=== PATIENT | male | born 1960 | race Caucasian/White ===

== ENCOUNTER 2019-04-29 18:51 | Emergency (ER) | payer BC ==
[2019-04-29] MEDS ORDERED: SODIUM CHLORIDE 0.9% 1,000 ML IV STA (19:19)
--- NOTE | 2019-04-29 19:19 | ED Physician Documentation ---
History of Present Illness - Stated complaint Stated Complaint: ABD PX - Chief complaint Chief Complaint: Abd Pain - Additonal information Additional information: This is a 58-year-old male presents with left lower quadrant pain. Patient st ates that the pain began in the last several hours, started just a twinge in his left lower quadrant and suddenly got much worse. It is sharp and radiates down towards his left testicle. He states that he had similar pain over 20 years ago and was found that he had an intestinal infection which cleared up with antibiotics. He denies vomiting or diarrhea, no blood in his stool, no fever. He denies any dysuria, or hematuria. No chest pain or shortness of breath Review of Systems Constitutional: denies: Fever Cardiac: denies: Chest pain / pressure Respiratory: denies: Dyspnea GI: reports: Abdominal Pain : denies: Dysuria Musculoskeletal: denies: Back pain PD PAST MEDICAL HISTORY - Past Medical History Cardiovascular: None Respiratory: None Endocrine/Autoimmune: None GI: None, Other : None HEENT: None Psych: None Musculoskeletal: None Derm: None - Past Surgical History Past Surgical History: Yes Ortho: Spine surgery, Other - Present Medications Home Medications: Ambulatory Orders Medication Instructions Recorded Confirmed traZODone [Desyrel] 50 mg ORAL QPM 09/17/15 09/25/15 Acetaminophen 650 mg PO Q6HR #30 tablet 04/29/19 Ibuprofen 600 mg PO Q6H PRN #30 tablet 04/29/19 Ondansetron Odt [Zofran] 4 mg TL Q6H PRN #10 tablet 04/29/19 Tamsulosin [Flomax] 0.4 mg PO DAILY #14 capsule 04/29/19 - Allergies Allergies/Adverse Reactions: Allergies Allergy/AdvReac Type Severity Reaction Status Date / Time No Known Drug Allergies Allergy Verified 04/29/19 18:55 - Social History Does the pt smoke?: Yes Smoking Status: Current every day smoker Does the pt drink ETOH?: No Does the pt have substance abuse?: No - Immunizations Immunizations are current?: Yes Immunizations: TDAP current <10years - POLST Patient has POLST: No PD ED PE NORMAL - Vitals Vital signs reviewed: Yes - General General: Alert and oriented X 3, No acute distress - HEENT HEENT: PERRL - Neck Neck: Supple, no meningeal sign - Cardiac Cardiac: RRR - Respiratory Respiratory: No respiratory distress, Clear bilaterally - Abdomen Abdomen: Other (Soft, rotund, there is focal left lower quadrant tenderness. No right lower quadrant right upper quadrant or left upper quadrant tendernessNo guarding. No palpable masses. There is a well-healed scar on the right inguinal region where he had a hernia repair in the past.) - Male Male : [employer] present, Other (Penis and testicles are normal in appearance, there is no overlying skin change. Patient has some mild tenderness to palpation of the left testicle, No masses palpated palpation of the left testicle) - Derm Derm: Warm and dry - Extremities Extremities: No deformity - Neuro Neuro: Alert and oriented X 3 - Psych Psych: Normal mood, Normal affect Results - Vitals Vitals: Vital Signs - 24 hr 04/29/19 04/29/19 04/29/19 18:56 21:09 21:35 Temperature 36.6 C 36.6 C Heart Rate 66 63 69 Respiratory 18 16 16 Rate Blood Pressure 142/84 H 114/64 102/86 H O2 Saturation 97 96 96 Oxygen O2 Source Room air - Labs Labs: Laboratory Tests 04/29/19 04/29/19 04/29/19 19:20 19:20 19:45 WBC 8.3 RBC 4.87 Hgb 14.7 Hct 43.1 MCV 88.5 MCH 30.2 MCHC 34.1 RDW 13.0 Plt Count 197 MPV 10.6 Neut # (Auto) 5.5 Lymph # (Auto) 1.8 [place] # (Auto) 0.7 Eos # (Auto) 0.2 Baso # (Auto) 0.1 Absolute Nucleated RBC 0.00 Nucleated RBC % 0.0 Sodium 138 Potassium 3.4 L Chloride 104 Carbon Dioxide 26 Anion Gap 8.0 BUN 16 Creatinine 1.1 Estimated GFR (MDRD) 69 L Glucose 158 H Calcium 9.1 Total Bilirubin 1.3 H AST 22 ALT 24 Alkaline Phosphatase 59 Total Protein 7.9 Albumin 4.3 Globulin 3.6 Albumin/Globulin Ratio 1.2 Lipase 39 Urine Color YELLOW Urine Clarity CLEAR Urine pH 5.5 Ur Specific [place] 1.015 Urine Protein NEGATIVE Urine Glucose (UA) NEGATIVE Urine Ketones NEGATIVE Urine Occult Blood SMALL H Urine Nitrite NEGATIVE Urine Bilirubin NEGATIVE Urine Urobilinogen 0.2 (NORMAL) Ur Leukocyte Esterase TRACE H Urine RBC 6-10 H Urine WBC 4-5 Ur Squamous Epith Cells FEW Squamous Urine Bacteria None Seen Ur Microscopic Review INDICATED Urine Culture Comments INDICATED - Rads (name of study) CT abd/pelvis Radiology: Other (2 mm obstructing stone in the left UVJ) PD MEDICAL DECISION MAKING - ED course Complexity details: considered differential (Diverticulitis, testicular torsion, nephrolithiasis, pyelonephritis, colitis, diverticulosis, obstruction) ED course: Patient is nontoxic-appearing on arrival, IV was inserted and given morphine and Zofran as well as fluids. CBC and CMP are unremarkable, urine shows 6-10 RBCs, no convincing signs of infection. CT is performed and shows a 2 mm obstructing stone in the left UVJ. This explains the pain that radiates down to the patient's L testicle. On genital exam there is no sign of torsion or infection. I discussed this result with the patient, and discussed expectant care. He was given a dose of Flomax here, and prescriptions for ibuprofen, Tylenol, Flomax, and Zofran. He declined a prescription for narcotic medication. I discussed return precautions including persistent vomiting despite the Zofran, fever, or severe abdominal pain. I recommended follow-up with his primary care provider and consideration of establishing with a urologist. Patient agreed with this plan and was discharged home in the care of his . Departure - Departure Disposition: 01 Home, Self Care Clinical Impression: Renal colic on left side Condition: Good Instructions: ED Stone Renal W Colic Follow-Up: Your,PCP [Other] Prescriptions: Acetaminophen 650 mg PO Q6HR #30 tablet Ibuprofen 600 mg PO Q6H PRN #30 tablet PRN Reason: Pain Ondansetron Odt [Zofran] 4 mg TL Q6H PRN #10 tablet PRN Reason: Nausea / Vomiting Tamsulosin [Flomax] 0.4 mg PO DAILY #14 capsule Comments: You were seen today for left-sided pain, your CT shows a small kidney stone, this should pass on its own. Please take the Flomax, adequately hydrate, and you may take the Zofran for nausea. You may try Tylenol and ibuprofen for pain control. If you are developing any persistent vomiting, or uncontrollable pain, return to the emergency department. Otherwise please follow-up with your primary care provider, and consider following up with a urologist as well. Discharge Date/Time: 04/29/19 21:37
[2019-04-29] MEDS ORDERED: ONDANSETRON 4 MG/2 ML VIAL IVP STA (19:40)
[2019-04-29] MEDS ORDERED: MORPHINE 2 MG/ML CARPUJECT IVP STA (19:40)
[2019-04-29] MEDS ORDERED: SODIUM CHLORIDE 0.9% 1,000 ML IV ONE (19:41)
[2019-04-29 19:48] LABS: BASOPHILS # (AUTO) 0.1 10^3/uL (0.0-0.1); BASOPHILS % (AUTO) 0.6 %; EOSINOPHILS # (AUTO) 0.2 10^3/uL (0.0-0.7); EOSINOPHILS % (AUTO) 2.3 %; HGB - HEMOGLOBIN 14.7 g/dL (14.0-18.0); LYMPHOCYTES # (AUTO) 1.8 10^3/uL (1.5-3.5); LYMPHOCYTES % (AUTO) 22.2 %; MEAN CORPUSCULAR HEMOGLOBIN 30.2 pg (27.0-31.0); MEAN CORPUSCULAR HGB CONC 34.1 g/dL (32.0-36.0); MEAN CORPUSCULAR VOLUME 88.5 fL (80.0-94.0); MEAN PLATELET VOLUME 10.6 fL (7.4-11.4); MONOCYTES # (AUTO) 0.7 10^3/uL (0.0-1.0); NEUTROPHILS # (AUTO) 5.5 10^3/uL (1.5-6.6); NEUTROPHILS % (AUTO) 66.5 %; PLT - PLATELET COUNT 197 10^3/uL (130-450); RED BLOOD COUNT 4.87 10^6/uL (4.70-6.10); WHITE BLOOD COUNT 8.3 x10^3/uL (4.8-10.8)
[2019-04-29] MEDS ORDERED: IOVERSOL 320 100 ML VIAL IVP ONE (19:56)
[2019-04-29 19:58] LABS: ALBUMIN 4.3 g/dL (3.2-5.5); ALBUMIN/GLOBULIN RATIO 1.2 (1.0-2.2); BILIRUBIN,TOTAL 1.3 mg/dL (0.2-1.0); CALCIUM 9.1 mg/dL (8.5-10.3); CREATININE 1.1 mg/dL (0.6-1.2); TOTAL PROTEIN 7.9 g/dL (6.7-8.2)
[2019-04-29] MEDS ORDERED: IOVERSOL 320 100 ML VIAL IVP STA (20:31)
--- NOTE | 2019-04-29 20:43 | CT Report ---
Reason: LLQ pain Procedure Date: 04/29/2019 Accession Number: [id number] / [id number] Procedure: CT - Abdomen/Pelvis W CPT Code: FULL RESULT: EXAM: CT ABDOMEN AND PELVIS EXAM DATE: 04/29/2019 08:29 PM. CLINICAL HISTORY: Left lower quadrant pain. COMPARISONS: None. TECHNIQUE: Routine helical CT imaging was performed through the abdomen and pelvis. IV contrast: 100 cc of Optiray 320. Enteric contrast: No. Reconstructions: Coronal and sagittal. In accordance with CT protocol optimization, one or more of the following dose reduction techniques were utilized for this exam: automated exposure control, adjustment of mA and/or KV based on patient size, or use of iterative reconstructive technique. FINDINGS: Lung Bases: Unremarkable. Liver: Diffuse low-density. Gallbladder/Bile Ducts: Unremarkable. Spleen: Normal. Pancreas: Normal. Adrenal Glands: Normal. Kidneys: Normal right kidney and ureter. 2 mm left UVJ stone with mild left hydronephrosis and hydroureter. No intrarenal stones. Peritoneal Cavity/Bowel: Normal. No free fluid, free air or adenopathy. No masses or acute inflammatory process. The appendix is well visualized and normal. Pelvic Organs: Normal. The bladder and visualized pelvic organs are within normal limits. Vasculature: No aneurysms or other significant abnormality. Bones: No significant abnormality. Other: None. IMPRESSION: 1. Mild left hydronephrosis and hydroureter due to an obstructing 2 mm UVJ stone. 2. Hepatic steatosis. RADIA
[2019-04-29 20:50] LABS: BILIRUBIN,URINE NEGATIVE (NEGATIVE); GLUCOSE, URINE (UA) NEGATIVE (NEGATIVE); KETONES,URINE (UA) NEGATIVE (NEGATIVE); LEUKOCYTE ESTERASE, URINE TRACE (NEGATIVE); NITRITE,URINE NEGATIVE (NEGATIVE); OCCULT BLOOD,URINE SMALL (NEGATIVE); PH,URINE 5.5 PH (5.0-7.5); PROTEIN,URINE NEGATIVE (NEGATIVE); UROBILINOGEN,URINE 0.2 (NORMAL) E.U./dL (NORMAL)
[2019-04-29] MEDS ORDERED: TAMSULOSIN 0.4 MG CAPSULE PO STA (21:02)
[2019-04-29 21:09] LABS: BACTERIA,URINE None Seen /HPF (None Seen); CLARITY,URINE CLEAR (CLEAR); SQUAMOUS EPITHELIAL CELL,UR FEW Squamous (<= Few)
[2019-04-29 21:36] VITALS: BP 102/86
== END 2019-04-29 21:37 | disposition home or self-care (01) ==
LOC: ED 18:51
DX: N13.2 Hydronephrosis with renal and ureteral calculous obstruction (principal); K76.0 Fatty (change of) liver, not elsewhere classified; F17.200 Nicotine dependence, unspecified, uncomplicated
CPT/HCPCS: 36415; 74177; 80053; 81001; 83690; 85025; 87077; 87086; 96361; 96374; 99284; A9270; Q9967; 81003